=== PATIENT | female | born 1930 | race Caucasian/White ===

== ENCOUNTER 2019-08-22 02:27 | Inpatient (IN) ==
[2019-08-22 02:58] LABS: Basophils # (auto) 0.01 K/uL (0-0.2); Basophils % (auto) 0.1 %; Eosinophils # (auto) 0.04 K/uL (0-0.5); Eosinophils % (auto) 0.3 %; Hematocrit (blood only) 37.4 % (37-47); Hemoglobin 12.3 g/dL (12.0-16.0); Immature Granulocytes # (auto) 0.02 K/uL (0.00-0.02); Immature Granulocytes % (auto) 0.2 %; Lymphocytes # (auto) 0.94 K/uL (1.2-3.4); Lymphocytes % (auto) 7.2 %; Mean Corpuscular Hemoglobin 29.4 pg (25-34); Mean Corpuscular Hgb Conc 32.9 g/dL (32-36); Mean Corpuscular Volume 89.3 fL (80-100); Mean Platelet Volume 10.1 fL (7.4-10.4); Monocytes # (auto) 0.67 K/uL (0.11-0.59); Monocytes % (auto) 5.1 %; Neutrophils # (auto) 11.41 K/uL (1.4-6.5); Neutrophils % (auto) 87.1 %; Platelet Count 171 K/uL (130-400); RDW Coefficient of Variation 13.3 % (11.5-14.5); RDW Standard Deviation 44.3 fL (36.4-46.3); Red Blood Count 4.19 M/uL (4.2-5.4); White Blood Count 13.09 K/uL (4.8-10.8)
[2019-08-22 03:14] LABS: INR 1.3 (0.9-1.1); Prothrombin Time 13.2 Seconds (9.0-12.0)
[2019-08-22 03:18] LABS: Albumin Level 3.7 gm/dl (3.4-5.0); BUN Creatinine Ratio 14.5 (10-20); Bilirubin Direct 0.2 mg/dl (0-0.2); Calcium 9.3 mg/dl (8.5-10.1); Est GFR (Non-African American) 51.8; Magnesium 1.9 mg/dl (1.8-2.4); Potassium 3.2 mmol/L (3.5-5.1)
[2019-08-22 03:33] LABS: Bilirubin,Total 0.6 mg/dl (0.2-1); Total Protein 7.3 gm/dl (6.4-8.2); Troponin I 0.593 ng/ml (0-0.045)
[2019-08-22] MEDS ORDERED: ACETAMINOPHEN 500 MG TAB PO STA (03:41)
[2019-08-22] MEDS ORDERED: ASPIRIN 81 MG CHEW PO STA (03:47)
[2019-08-22] MEDS ORDERED: POTASSIUM CHLORIDE 20 MEQ TABCR PO STA (03:48)
[2019-08-22] MEDS ORDERED: POTASSIUM CHLORIDE 10 MEQ TABCR PO ONE (03:56)
[2019-08-22 04:13] LABS: Thyroid Stimulating Hormone 4.92 uIu/ml (0.300-4.500)
[2019-08-22 04:34] LABS: T4 Free Thyroxine 1.65 ng/dl (0.8-1.6)
--- NOTE | 2019-08-22 04:53 | History & Physical Report ---
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 Hypertension, elevated secondary to above chronic diastolic heart failure (EF 55 to 60%, TTE 2016), patient euvolemic to dry hx CAD sp stent hyperlipidemia on statin Rx hypothyroidism, euthyroid as of today's TSH history PE/DVT status post IVC filter placement Hyperglycemia rule out DM Medical telemetry Neurochecks Baby aspirin, continue home statin for secondary stroke prevention for now Stroke work-up as follows: MRI/MRA brain, carotid Dopplers, 2D echo Update lipid profile Neurology consult RE LUE weakness Permissive hypertension Check hemoglobin A1c PT OT eval DVT prophylaxis per Lovenox subcu DNR Patient's daughter requesting updates for providers. Ms. Lety Ordoñez, [phone]. Text document was generated using [employer] for [employer] voice recognition software. It may contain grammatical or spelling errors. Kindly contact undersigned for clarification of any documentation item in question. History of Present Illness Chief Complaint: Left arm weakness Primary Care Provider: Nell Sinha DO Patient has another [facility] EMR record. [facility] Rec: [id number] Acct ID: [id number] History obtained from patient, family, and records. Medical history significant for chronic diastolic heart failure (EF 55 to 60%, TTE 2016) CAD sp stent, A. 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 Recent confinement October 2015 for acute PE/DVT. Patient discharged on Eliquis. Recent ER visit 2 months ago for head trauma following a fall resulting in a scalp laceration. Patient not feeling well the last couple of days. Yesterday morning, she noted weakness in the left arm and hand. Achy generalized headache, nausea symptoms. Patient did not want to come to the hospital initially. Patient denies chest pain, S OB. Denies abdominal pain, dysuria symptoms Patient given aspirin by EMS prior to transfer to ER. 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 Allergies Allergy/AdvReac Type Severity Reaction Status Date / Time warfarin Allergy Unknown Verified 08/22/19 10:33 Thiazides AdvReac Unknown HYPERCALCEM Verified 08/22/19 04:24 IA Home Medications Home Medications Medication Instructions Recorded Confirmed Type albuterol sulfate 90 mcg/actuation 2 puffs INH Q6H PRN #8 gm 02/17/19 08/22/19 Rx aerosol inhaler cholecalciferol (vitamin D3) 25 1,000 units PO DAILY #30 cap 02/17/19 08/22/19 Rx mcg (1,000 unit) capsule docusate sodium 100 mg capsule 100 mg PO BID #60 cap 02/17/19 08/22/19 Rx furosemide 20 mg tablet 20 mg PO DAILY #90 tab 02/17/19 08/22/19 Rx lisinopril 5 mg tablet 5 mg PO DAILY #90 tab 02/17/19 08/22/19 Rx nitroglycerin 0.4 mg sublingual 0.4 mg SL Q5M PRN #25 tab 02/17/19 08/22/19 Rx tablet potassium chloride 8 mEq 8 meq PO DAILY #90 cap 02/17/19 08/22/19 Rx capsule,extended release salmeterol 50 mcg/dose blister 1 puffs INH Q12H #60 ea 02/17/19 08/22/19 Rx powder for inhalation sertraline 25 mg PO QPM 06/28/19 08/22/19 History amiodarone 200 mg PO QAM 08/22/19 08/22/19 History famotidine 20 mg PO QAM 08/22/19 08/22/19 History levothyroxine 75 mcg PO QAM 08/22/19 08/22/19 History loratadine 5 mg PO DAILY 08/22/19 08/22/19 History metoprolol succinate 25 mg PO QAM 08/22/19 08/22/19 History yfnurmxy-swi-fvcd-FA-lutein 1 tab PO QAM 08/22/19 08/22/19 History [Centrum Silver Women] pravastatin 20 mg PO QPM 08/22/19 08/22/19 History theophylline 300 mg PO DAILY 08/22/19 08/22/19 History vit C,R-Ea-kzxrj-lutein-zeaxan 1 tab PO BID 08/22/19 08/22/19 History [PreserVision AREDS-2] Past Med/Surg History Medical History Asthma, moderate persistent (Chronic) CAD (coronary artery disease) (Chronic) "s/p LAD stent placed in 2003" CKD (chronic kidney disease) stage 3, GFR 30-59 ml/min (Chronic) Diastolic heart failure (Chronic) "echo 07/06/14-LVEF 50% with grade 1 diastolic dysfunction and mild L ventricular hypertrophy, mod aortic regurg and mod mitral regurg" Dyslipidemia (Chronic) Femur fracture, left (Acute) History of CVA (cerebrovascular accident) (Chronic) "during procedure in 2012 " HTN (hypertension) (Chronic) Hypothyroidism (Chronic) Paroxysmal atrial fibrillation (Chronic) Vitamin D deficiency (Chronic) Surgical History H/O cataract removal with insertion of prosthetic lens (Resolved) "bilateral" History of hysterectomy (Resolved) Hx of total knee arthroplasty (Resolved) "bilateral 1996 and 1997" Status post revision of total replacement of left knee (Resolved) "2010" Stented coronary artery (Resolved) "LAD 2003" Social History Preferred Language: Romansh Communication Ability: Impaired 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 Beliefs That Will Affect Care: None marital status: / Current Living Situation: Alone current occupational status: retired Feels Safe at Home: Yes Safety Concerns: Feels Safe At This Time Smoking Status: Never smoker Hx Alcohol Use: No Hx Substance Use: No Review of Systems Review of Systems: As per HPI, all 10 systems reviewed, all other ROS negative Physical Exam Physical Exam: GENERAL: Comfortable, pleasant, slightly hard of hearing, no respiratory distress SKIN: Normal color, warm HEENT: Bespectacled, pink palpebral conjunctivae, no ptosis, dry buccal mucosa, edentulous NECK : Supple, no tenderness CHEST : CTA, no tenderness HEART : RRR, systolic murmur ABDOMEN: Some distention, nontender EXTREMITIES : No LE swelling/tenderness, no other conspicuous deformities noted NEUROLOGIC : Coherent, no facial asymmetry, slightly hard of hearing, pronator drift left, Results & Data Vital Signs (Past 12 Hours) Vital Signs Temp Pulse Resp BP Pulse Ox 08/22/19 03:30 73 21 166/83 H 95 08/22/19 03:00 78 13 162/80 H 97 08/22/19 02:54 76 17 168/79 H 96 08/22/19 02:33 36.7 C 88 16 144/80 H 97 Laboratory Results Laboratory Results WBC 13.09 K/uL (4.8-10.8) H 08/22/19 02:45 RBC 4.19 M/uL (4.2-5.4) L 08/22/19 02:45 Hgb 12.3 g/dL (12.0-16.0) 08/22/19 02:45 Hct 37.4 % (37-47) 08/22/19 02:45 MCV 89.3 fL (80-100) 08/22/19 02:45 MCH 29.4 pg (25-34) 08/22/19 02:45 MCHC 32.9 g/dL (32-36) 08/22/19 02:45 RDW Std Deviation 44.3 fL (36.4-46.3) 08/22/19 02:45 RDW Coeff of [place] 13.3 % (11.5-14.5) 08/22/19 02:45 Plt Count 171 K/uL (130-400) 08/22/19 02:45 MPV 10.1 fL (7.4-10.4) 08/22/19 02:45 Immature Gran % (Auto) 0.2 % 08/22/19 02:45 Neut % (Auto) 87.1 % 08/22/19 02:45 Lymph % (Auto) 7.2 % 08/22/19 02:45 [place] % (Auto) 5.1 % 08/22/19 02:45 Eos % (Auto) 0.3 % 08/22/19 02:45 Baso % (Auto) 0.1 % 08/22/19 02:45 Immature Gran # (Auto) 0.02 K/uL (0.00-0.02) 08/22/19 02:45 Neut # (Auto) 11.41 K/uL (1.4-6.5) H 08/22/19 02:45 Lymph # (Auto) 0.94 K/uL (1.2-3.4) L 08/22/19 02:45 [place] # (Auto) 0.67 K/uL (0.11-0.59) H 08/22/19 02:45 Eos # (Auto) 0.04 K/uL (0-0.5) 08/22/19 02:45 Baso # (Auto) 0.01 K/uL (0-0.2) 08/22/19 02:45 PT 13.2 Seconds (9.0-12.0) H 08/22/19 02:45 INR 1.3 (0.9-1.1) H 08/22/19 02:45 Sodium 141 mmol/L (136-145) 08/22/19 02:45 Potassium 3.2 mmol/L (3.5-5.1) L 08/22/19 02:45 Chloride 108 mmol/L (98-107) H 08/22/19 02:45 Carbon Dioxide 23 mmol/L (21-32) 08/22/19 02:45 Anion Gap 10.0 (3-11) 08/22/19 02:45 BUN 14 mg/dl (7-18) 08/22/19 02:45 Creatinine 0.97 mg/dl (0.6-1.2) 08/22/19 02:45 Est Cr Clr Drug Dosing 33.0 ml/min 08/22/19 02:45 Est GFR ( Amer) 60.0 08/22/19 02:45 Est GFR (Non-Af Amer) 51.8 08/22/19 02:45 BUN/Creatinine Ratio 14.5 (10-20) 08/22/19 02:45 Glucose 154 mg/dl (70-99) H 08/22/19 02:45 Calcium 9.3 mg/dl (8.5-10.1) 08/22/19 02:45 Magnesium 1.9 mg/dl (1.8-2.4) 08/22/19 02:45 Total Bilirubin 0.6 mg/dl (0.2-1) 08/22/19 02:45 Direct Bilirubin 0.2 mg/dl (0-0.2) 08/22/19 02:45 AST 37 U/L (15-37) 08/22/19 02:45 ALT 44 U/L (12-78) 08/22/19 02:45 Alkaline Phosphatase 249 U/L (45-117) H 08/22/19 02:45 Troponin I 0.593 ng/ml (0-0.045) H* 08/22/19 02:45 Total Protein 7.3 gm/dl (6.4-8.2) 08/22/19 02:45 Albumin 3.7 gm/dl (3.4-5.0) 08/22/19 02:45 TSH 4.920 uIu/ml (0.300-4.500) H 08/22/19 02:45 Free T4 1.65 ng/dl (0.8-1.6) H 08/22/19 02:[address] head initial read: Acute intracranial hemorrhage, mass-effect or edema. No evidence of acute cortical stroke. Encephalomalacia. Old infarct left frontal and left frontoparietal region. Diffuse parenchymal atrophy. CXR as per my interpretation cardiomegaly EKG as per my interpretation: Rate 85, NSR, LAD, LAFB, LVH, no ischemia
[2019-08-22] MEDS ORDERED: METOPROLOL SUCC 50MG EXT REL TAB PO STA (05:04)
[2019-08-22 05:14] LABS: Appearance Urine Cloudy (Clear); Bacteria Urine Automated 4+ (Negative); Bilirubin Urine Negative (Negative); Blood Urine Negative (Negative); Color Urine Yellow; Epithelial Cell Urine Auto 0-5 /lpf (0-5); Glucose Urine UA Negative (Negative); Ketones Urine 1+ (Negative); Leukocyte Esterase Urine 1+ (Negative); Nitrite Urine Negative (Negative); Protein Urine 1+ (Negative); RBC Urine Automated 0-4 /hpf (0-4); Urobilinogen Urine Negative (Negative); WBC Urine Automated >30 /hpf (0-5)
[2019-08-22] MEDS ORDERED: cefTRIAXone SODIUM 1,000 MG/50 ML BAG IV STA (05:24)
--- NOTE | 2019-08-22 05:42 | Emergency Department Note ---
Entered by Jennifer Hall acting as a scribe for Frankie Judge MD ED Provider Note Name: MYKE SANZ Age: 89 Arrives Via: Family Vehicle Informant: Patient CC: Weakness HPI: 89F arrives for evaluation of weakness for the past several days. The patient reports that that the patient was experiencing left arm weakness yesterday morning. She states that she could not lift it. She notes that she currently has a headache and mild nausea. No fevers, vomiting, passing out, breathing difficulty, chest pain, shortness of breath, abdominal pain, nor other symptoms. The patient notes that she has a history of a stroke. She denies being on any blood thinners. She has had a few falls over the last few weeks though no known head injury. She is on no blood thinners nor aspirin. ROS: See above HPI for pertinent positives & negatives. A total of 10 systems reviewed and were otherwise negative. Past Medical History:See Below Past Surgical History:See Below Family History:See Below Social History:See Below Home Medications:See Below Allergies:Coumadin, Thiazides Vitals:Blood Pressure 152/70, Pulse 65, Resp 15, T 36.7C, O2 97% on RA Physical Exam: GENERAL: Patient is anxious appearing appearing and in mild distress. EYES: No scleral icterus, unremarkable pupils. ENT: Mucous membranes moist, no nasal congestion. NECK: No masses appreciated, nomeningismus, trachea is midline. RESPIRATORY: No dyspnea. Clear to auscultation and equal bilaterally. No wheeze, no rhonchi. CARDIOVASCULAR: Regular rate and rhythm.No murmurs, rubs, gallops appreciated. GASTROINTESTINAL: Abdomen soft, non-tender, no peritonitis.Bowel sounds positive.No masses appreciated. BACK: No midline tenderness, no CVA tenderness EXTREMITIES: Normal motion all extremities, no cyanosis, no edema. Ataxia of left hand and arm, good strength of hand, decreased strength of upper arm. Contraction of right hand with weakness. NEUROLOGIC: Alert and oriented, no acute motor or sensory deficits, no focal weakness, cranial nerves grossly intact. Slight left sided facial droop overcome by voluntary muscles. SKIN: No rash, no jaundice, no diaphoresis. GCS 15 ED Course: Prior Medical Record, Triage/Nursing Notes, Medications, Allergies reviewed by Me Vital Signs: reviewed and remarkable for no significant abnormalities Labs:Reviewed and remarkable for +UTI Interventions: saline lock, rocephin 1 gm IV, asa 324mg PO, tylenol PO Imaging:X ray results are stated below per my interpretation: Chest: 1 view: No infiltrate, no effusion, normal cardiac border. [facility] Radiologist interpretation reviewed by me: CT head no acute findings EKG:Per My Interpretation: Indication Stroke: NSR 85 bpm, qtc 459 with intraventricular block and similar to EKG 11/22/15. No Ectopy. No Ischemia. Cardiac Monitoring: An Order was placed for continuous cardiac monitoring. The monitor shows a rate of 60 with a normal sinus rhythm. Reassessments/Times: Multiple reevaluations, stable, hospitalist in to evaluate further. Blood pressure:Elevated - Referred to Hospitalist Disposition:Hospitalization Differentials: Differential: Sepsis, Infectious (UTI/Pneumonia/Meningitis/etc), Metabolic/Electrolyte Abnormality, Cardiac, Dehydration, Anemia, Hepatic, Endocrine, Toxicologic, Neurologic, amongst other pathologies entertained. Medical Decision Makin yr old female with history of cad, ckd, cva, paf, pewho does not appear to be on any anticoagulation due to previous GI bleed. She arrives with 20 hours of left arm ataxia and some weakness of left face on exam. She is primarily left handed after stroke leaving right side weak a few years ago, though has been living at home doing well. She does seem a bit tired but GCS 15. CT head negative for acute findings. Labs OK though Trop is bumped. Unclear if this is chronic or not and will need trended out. EKG without ischemia and patient without chest pain thus would hold on heparin at this time. UA with UTI thus rocephin given. patient will come in to hospitalist for further management. Impression: Ataxia of left upper extremity Elevated Troponin Acute UTI The scribe's documentation has been prepared under my direction and personally reviewed by me in its entirety. I confirm that the note above accurately reflects all work, treatment, procedures, and medical decision making performed by me. Frankie Judge MD Impression & Plan Ataxia of left upper extremity, Elevated troponin, Acute UTI (urinary tract infection) Past Med/Surg History Medical History Asthma, moderate persistent (Chronic) CAD (coronary artery disease) (Chronic) "s/p LAD stent placed in 2003" CKD (chronic kidney disease) stage 3, GFR 30-59 ml/min (Chronic) Diastolic heart failure (Chronic) "echo 07/06/14-LVEF 50% with grade 1 diastolic dysfunction and mild L ventricular hypertrophy, mod aortic regurg and mod mitral regurg" Dyslipidemia (Chronic) Femur fracture, left (Acute) History of CVA (cerebrovascular accident) (Chronic) "during procedure in 2012 " HTN (hypertension) (Chronic) Hypothyroidism (Chronic) Paroxysmal atrial fibrillation (Chronic) Vitamin D deficiency (Chronic) Surgical History H/O cataract removal with insertion of prosthetic lens (Resolved) "bilateral" History of hysterectomy (Resolved) Hx of total knee arthroplasty (Resolved) "bilateral 1996 and 1997" Status post revision of total replacement of left knee (Resolved) "2010" Stented coronary artery (Resolved) "LAD 2003" Social History Preferred Language: Sinhala marital status: / Current Living Situation: Alone current occupational status: retired Feels Safe at Home: Yes Smoking Status: Never smoker Results & Data Vital Signs Vital Signs - 24 hr 08/22/19 02:33 08/22/19 02:54 08/22/19 03:00 Temperature 36.7 C Temperature Source Oral Pulse Rate 88 76 78 Pulse Rate from SpO2 Sensor 77 78 Respiratory Rate 16 17 13 Respiratory Effort / Characteristics Non-Labored Spontaneous Respiratory Depth Normal Respiratory Pattern Regular Blood Pressure 144/80 H 168/79 H 162/80 H Blood Pressure Mean 101 124 111 Blood Pressure Position Sitting Pulse Oximetry 97 96 97 Oxygen Delivery Method Room Air Sepsis Recent Fever Within 48 Hours No Sepsis Action Taken by Nursing No Action Required 08/22/19 03:30 08/22/19 04:00 08/22/19 04:30 Temperature Temperature Source Pulse Rate 73 79 72 Pulse Rate from SpO2 Sensor 80 72 Respiratory Rate 21 17 18 Respiratory Effort / Characteristics Respiratory Depth Respiratory Pattern Blood Pressure 166/83 H 178/102 H 165/79 H Blood Pressure Mean 89 125 101 Blood Pressure Position Pulse Oximetry 95 97 92 Oxygen Delivery Method Room Air Room Air Room Air Sepsis Recent Fever Within 48 Hours Sepsis Action Taken by Nursing 08/22/19 05:01 08/22/19 05:30 Temperature Temperature Source Pulse Rate 71 65 Pulse Rate from SpO2 Sensor 71 65 Respiratory Rate 17 15 Respiratory Effort / Characteristics Respiratory Depth Respiratory Pattern Blood Pressure 165/79 H 152/70 H Blood Pressure Mean 97 101 Blood Pressure Position Pulse Oximetry 97 97 Oxygen Delivery Method Room Air Room Air Sepsis Recent Fever Within 48 Hours Sepsis Action Taken by Long Term Medications Current Medication List: was personally reviewed by me Laboratory Data Attestation: I reviewed the patient's lab results. Result diagrams: 08/22/19 02:45 08/22/19 02:45 Lab Results 08/22/19 08/22/19 08/22/19 Range/Units 02:45 02:45 02:45 WBC 13.09 H (4.8-10.8) K/uL RBC 4.19 L (4.2-5.4) M/uL Hgb 12.3 (12.0-16.0) g/dL Hct 37.4 (37-47) % MCV 89.3 (80-100) fL MCH 29.4 (25-34) pg MCHC 32.9 (32-36) g/dL RDW Std Deviation 44.3 (36.4-46.3) fL RDW Coeff of [place] 13.3 (11.5-14.5) % Plt Count 171 (130-400) K/uL MPV 10.1 (7.4-10.4) fL Immature Gran % (Auto) 0.2 % Neut % (Auto) 87.1 % Lymph % (Auto) 7.2 % [place] % (Auto) 5.1 % Eos % (Auto) 0.3 % Baso % (Auto) 0.1 % Immature Gran # (Auto) 0.02 (0.00-0.02) K/uL Neut # (Auto) 11.41 H (1.4-6.5) K/uL Lymph # (Auto) 0.94 L (1.2-3.4) K/uL [place] # (Auto) 0.67 H (0.11-0.59) K/uL Eos # (Auto) 0.04 (0-0.5) K/uL Baso # (Auto) 0.01 (0-0.2) K/uL PT 13.2 H (9.0-12.0) Seconds INR 1.3 H (0.9-1.1) Sodium 141 (136-145) mmol/L Potassium 3.2 L (3.5-5.1) mmol/L Chloride 108 H (98-107) mmol/L Carbon Dioxide 23 (21-32) mmol/L Anion Gap 10.0 (3-11) BUN 14 (7-18) mg/dl Creatinine 0.97 (0.6-1.2) mg/dl Est Cr Clr Drug Dosing 33.0 ml/min Est GFR ( Amer) 60.0 Est GFR (Non-Af Amer) 51.8 BUN/Creatinine Ratio 14.5 (10-20) Glucose 154 H (70-99) mg/dl Calcium 9.3 (8.5-10.1) mg/dl Magnesium 1.9 (1.8-2.4) mg/dl Total Bilirubin 0.6 (0.2-1) mg/dl Direct Bilirubin 0.2 (0-0.2) mg/dl AST 37 (15-37) U/L ALT 44 (12-78) U/L Alkaline Phosphatase 249 H (45-117) U/L Troponin I 0.593 H* (0-0.045) ng/ml Total Protein 7.3 (6.4-8.2) gm/dl Albumin 3.7 (3.4-5.0) gm/dl TSH 4.920 H (0.300-4.500) uIu/ml Free T4 1.65 H (0.8-1.6) ng/dl Urine Color Urine Appearance (Clear) Urine pH (4.5-7.5) Ur Specific [place] (1.000-1.030) Urine Protein (Negative) Urine Glucose (UA) (Negative) Urine Ketones (Negative) Urine Blood (Negative) Urine Nitrite (Negative) Urine Bilirubin (Negative) Urine Urobilinogen (Negative) Ur Leukocyte Esterase (Negative) Urine WBC (Auto) (0-5) /hpf Urine RBC (Auto) (0-4) /hpf U Hyaline Cast (Auto) (0-5) /lpf U Epithel Cells (Auto) (0-5) /lpf Urine Bacteria (Auto) (Negative) 08/22/19 Range/Units 04:57 WBC (4.8-10.8) K/uL RBC (4.2-5.4) M/uL Hgb (12.0-16.0) g/dL Hct (37-47) % MCV (80-100) fL MCH (25-34) pg MCHC (32-36) g/dL RDW Std Deviation (36.4-46.3) fL RDW Coeff of [place] (11.5-14.5) % Plt Count (130-400) K/uL MPV (7.4-10.4) fL Immature Gran % (Auto) % Neut % (Auto) % Lymph % (Auto) % [place] % (Auto) % Eos % (Auto) % Baso % (Auto) % Immature Gran # (Auto) (0.00-0.02) K/uL Neut # (Auto) (1.4-6.5) K/uL Lymph # (Auto) (1.2-3.4) K/uL [place] # (Auto) (0.11-0.59) K/uL Eos # (Auto) (0-0.5) K/uL Baso # (Auto) (0-0.2) K/uL PT (9.0-12.0) Seconds INR (0.9-1.1) Sodium (136-145) mmol/L Potassium (3.5-5.1) mmol/L Chloride (98-107) mmol/L Carbon Dioxide (21-32) mmol/L Anion Gap (3-11) BUN (7-18) mg/dl Creatinine (0.6-1.2) mg/dl Est Cr Clr Drug Dosing ml/min Est GFR ( Amer) Est GFR (Non-Af Amer) BUN/Creatinine Ratio (10-20) Glucose (70-99) mg/dl Calcium (8.5-10.1) mg/dl Magnesium (1.8-2.4) mg/dl Total Bilirubin (0.2-1) mg/dl Direct Bilirubin (0-0.2) mg/dl AST (15-37) U/L ALT (12-78) U/L Alkaline Phosphatase (45-117) U/L Troponin I (0-0.045) ng/ml Total Protein (6.4-8.2) gm/dl Albumin (3.4-5.0) gm/dl TSH (0.300-4.500) uIu/ml Free T4 (0.8-1.6) ng/dl Urine Color Yellow Urine Appearance Cloudy A (Clear) Urine pH 6.0 (4.5-7.5) Ur Specific [place] 1.020 (1.000-1.030) Urine Protein 1+ H (Negative) Urine Glucose (UA) Negative (Negative) Urine Ketones 1+ H (Negative) Urine Blood Negative (Negative) Urine Nitrite Negative (Negative) Urine Bilirubin Negative (Negative) Urine Urobilinogen Negative (Negative) Ur Leukocyte Esterase 1+ H (Negative) Urine WBC (Auto) >30 H (0-5) /hpf Urine RBC (Auto) 0-4 (0-4) /hpf U Hyaline Cast (Auto) 1-5 (0-5) /lpf U Epithel Cells (Auto) 0-5 (0-5) /lpf Urine Bacteria (Auto) 4+ H (Negative) Administered Medications Discontinued Medications Acetaminophen (Tylenol) 1,000 mg PO NOW STA Stop: 08/22/19 03:42 Last Admin: 08/22/19 03:57 Dose: 1,000 mg Documented by: [id number] Aspirin (Aspirin Chew) 324 mg PO NOW STA Stop: 08/22/19 03:48 Last Admin: 08/22/19 03:58 Dose: 324 mg Documented by: [id number] Potassium Chloride (Klor-Con M10) Confirm Administered Dose 40 meq PO .STK-MED ONE Stop: 08/22/19 03:57 Last Admin: 08/22/19 03:57 Dose: 40 meq Documented by: [id number] Blood Pressure Blood Pressure Findings: Elevated blood pressure Discharge Plan Visit Data Chief Complaint: Neuro Symptoms/Deficit Stated Complaint: GARCIA, NAUSEA, CONFUSION, LEFT ARM WEAKNES ED Provider: Frankie Judge Discharge Problem: Ataxia of left upper extremity, Elevated troponin, Acute UTI (urinary tract infection) Discharge Instructions Interventions: ED Discharge Assessment Last Done: 08/22/19 05:35 Forms Stand Alone Forms: My [employer] Prescriptions Prescriptions: No Action nitroglycerin 0.4 mg tablet, sublingual 0.4 mg SL Q5M PRN (Reason: chest pain) Qty: 25 RF: 0 albuterol sulfate [ProAir HFA] 90 mcg/actuation HFA aerosol inhaler 2 puffs INH Q6H PRN (Reason: shortness of breath or wheezing) Qty: 8 RF: 0 Serevent Diskus 50 mcg/dose blister with device 1 puffs INH Q12H Qty: 60 RF: 3 furosemide 20 mg tablet 20 mg PO DAILY Qty: 90 RF: 3 potassium chloride 8 mEq capsule, extended release 8 meq PO DAILY Qty: 90 RF: 3 docusate sodium [Colace] 100 mg capsule 100 mg PO BID Qty: 60 RF: 0 cholecalciferol (vitamin D3) 1,000 unit capsule 1,000 units PO DAILY Qty: 30 RF: 0 lisinopril 5 mg tablet 5 mg PO DAILY Qty: 90 RF: 3 sertraline 25 mg Tablet 25 mg PO QPM RF: 0 amiodarone 200 mg tablet 200 mg PO QAM RF: 0 levothyroxine 75 mcg capsule 75 mcg PO QAM RF: 0 loratadine 5 mg tablet,disintegrating 5 mg PO DAILY RF: 0 PreserVision AREDS-2 [id number] kw-gsqz-[id number]-mg Capsule 1 tab PO BID RF: 0 Centrum Silver Women 8 mg iron-400 mcg-300 mcg tablet 1 tab PO QAM RF: 0 famotidine 20 mg Tablet 20 mg PO QAM RF: 0 metoprolol succinate 25 mg Tablet Extended Release 24 Hr 25 mg PO QAM RF: 0 theophylline 300 mg Capsule,Extended Release 24hr 300 mg PO DAILY RF: 0 pravastatin 20 mg tablet 20 mg PO QPM RF: 0 Referrals Referrals: Nell Sinha DO [Primary Care Provider] - The scribe's documentation has been prepared under my direction and personally reviewed by me in its entirety. I confirm that the note above accurately reflects all work, treatment, procedures, and medical decision making performed by me.
[2019-08-22 06:14] LABS: Estimated Average Glucose 126 mg/dl
[2019-08-22] MEDS ORDERED: PROMETHAZINE HCL 12.5 MG in SODIUM CHLORIDE 0.9% 50 ML IV PRN (06:15)
[2019-08-22] MEDS ORDERED: ACETAMINOPHEN 325 MG TAB PO PRN (06:15)
[2019-08-22] MEDS ORDERED: NITROGLYCERIN SL 0.4 MG/TAB TAB SL PRN (06:15)
[2019-08-22] MEDS ORDERED: TRAMADOL HCL 50 MG TABLET PO PRN (06:15)
[2019-08-22] MEDS ORDERED: PHARMACIST DISCHARGE MED REC CONSULT PRN (06:15)
--- NOTE | 2019-08-22 06:42 | XRay Report ---
XR chest 1V portable HISTORY: 89 years-old Female stroke findings acute strokelike symptoms COMPARISON: CTA of the chest 11/20/2015, chest radiograph 09/08/2015 TECHNIQUE: Portable AP view of the chest. FINDINGS: Cardiac silhouette is mildly enlarged. Calcified plaque of the thoracic aortic arch. The lungs are hy perinflated. No pneumothorax, pleural effusion, airspace consolidation or overt pulmonary edema. Dege nerative changes of the shoulders and spine. IMPRESSION: No acute process. ACT 112: Negative or not required by law. The above report was generated using voice recognition software. It may contain grammatical, syntax o r spelling errors. Electronically signed by: Pritesh Ventura M.D. 08/22/2019 6:41 AM
--- NOTE | 2019-08-22 06:55 | CT Scan Report ---
CT head/brain wo con CLINICAL HISTORY: 89 years-old Female with left arm weakness. Acute strokelike symptoms with left-si ded weakness TECHNIQUE: Multiple axial CT images of the head were obtained without contrast. A dose lowering tech nique was utilized adhering to the principles of ALARA. CT DOSE: 614.27 mGy.cm COMPARISON: Head CT 06/28/2019, 10/01/2012. FINDINGS: No acute intracranial hemorrhage, midline shift, intracranial mass, hydrocephalus, territorial ischem ia or abnormal extra-axial collection. Age-related involutional changes with ex vacuo ventriculomegal y. Patchy white matter hypodensities suggest chronic microvascular ischemic disease. Cerebral vascula r calcifications. Encephalomalacia from remote infarct in the left frontal lobe. 5 mm hypodense focus of the left thalamus is either new or has progressed from the 06/28/2019 study and was not present on the 2012 exam. No acute calvarial fracture. Benign hyperostosis frontalis interna. Trace right mastoid effusion. Le ft mastoid air cells are clear. Paranasal sinuses are also generally clear. The soft tissues are unre markable. Prior bilateral lens replacement. IMPRESSION: 1. No acute intracranial hemorrhage, midline shift or acute territorial infarct. 2. Age-related involutional changes with chronic microvascular ischemic. 3. Encephalomalacia from remote infarct involves left frontal lobe. 4. 5 mm hypodensity of the left thalamus is suggestive of age-indeterminate lacunar infarct. ACT 112: Negative or not required by law. The above report was generated using voice recognition software. It may contain grammatical, syntax o r spelling errors. Electronically signed by: Pritesh Ventura M.D. 08/22/2019 6:53 AM
[2019-08-22] MEDS ORDERED: POTASSIUM CHLORIDE 40 MEQ in SODIUM CHLORIDE 0.45 % 1,000 ML IV ONE (07:00)
[2019-08-22] MEDS: LEVOTHYROXINE SODIUM 75 MCG TABLET PO SCH (07:21)
--- NOTE | 2019-08-22 07:34 | Hospitalist Progress Note ---
Date of Service August 22, 2019 Assessment & Plan (1) Ataxia of left upper extremity: (2) Elevated troponin: (3) Acute UTI (urinary tract infection): (4) CAD (coronary artery disease): (5) CKD (chronic kidney disease) stage 3, GFR 30-59 ml/min: (6) Diastolic heart failure: (7) Dyslipidemia: (8) History of CVA (cerebrovascular accident): (9) HTN (hypertension): (10) Hypothyroidism: MRI pending, Continue Rocephin, PT/OT, discussed case c Dtr at bedside, Labs checked ROS-No Headache, No Visual Changes, No Nausea, No Vomiting, No Fever, No Chills, No Neck Pain or Stiffness, No Chest Pain, No Palpitations, No SOB, No VALENZUELA, No Cough, No Sputum, No Wheezing, No Abdominal Pain, No Diarrhea, No Hematemesis, No Hemoptysis, No Unexpected Weight Loss, No Flank pain, No Melena, No Hematochezia, No Frequency, No Urgency, No Burning, No Hematuria, No Rashes, No Diaphoresis. Appetite is Normal Physical Exam Gen-AAO x 3, NAD, Afebrile Head-NCAT, EOMI, PERRLA, Anicteric Sclera, No Posterior Pharyngeal Erythema Neck-Supple, No JVD, No Thyromegaly, No Masses, No LAD, No Bruits Lungs-Clear to Auscultation Bilaterally, No Rales, No Rhonchi, No Wheezing, No Crepitus Chest-No S4, +S1, +S2, No S3, No Murmurs, No Rubs, No Gallops, No Ectopy Abdomen-Soft, Bowel Sounds Present, Non Tender, Non Distended, No Hepatomegaly, No Splenomegaly, No Palpable Masses, No Rebound, No Rigidity, No Guarding Musculoskeletal-Full Range of Motion Bilaterally, No CVAT Extremities-No Cyanosis, No Clubbing, No Edema Nuero-Cranial Nerves II-XII grossly intact, Motor WNL, DTRs WNL, Strength WNL, Non Focal Psych-Normal Mood Admission and Anticipated Discharge Date Admission Date: August 22, 2019 Results & Data ([facility]) Vital Signs (Past 12 Hours) Vital Signs Temp Pulse Pulse Resp BP BP Pulse Ox 08/22/19 07:17 63 08/22/19 06:46 65 08/22/19 06:03 36.8 C 76 16 162/72 H 97 08/22/19 05:30 65 15 152/70 H 97 08/22/19 05:01 71 17 165/79 H 97 08/22/19 04:30 72 18 165/79 H 92 08/22/19 04:00 79 17 178/102 H 97 08/22/19 03:30 73 21 166/83 H 95 08/22/19 03:00 78 13 162/80 H 97 08/22/19 02:54 76 17 168/79 H 96 08/22/19 02:33 36.7 C 88 16 144/80 H 97
--- NOTE | 2019-08-22 08:25 | Magnetic Resonance Report ---
MR brain wo con CLINICAL HISTORY: 89 years-old Female presenting with cva, left-sided weakness. TECHNIQUE: Multisequence, multiplanar MR imaging of the brain was performed without the use of intrav enous contrast. IV contrast: None. COMPARISON: Noncontrast CT head performed earlier the same day. FINDINGS: Localizer images: Unremarkable. Bone marrow signal intensity within the calvarium within normal limits. Normal midline sagittal structures. Proportional ventricular and sulcal prominence, likely age-relate d parenchymal volume loss. No mass effect or midline shift. Restricted diffusion in the paramedian ri ght occipital lobe (series 4 image 11; series 400 image 11). There are also numerous small foci of re stricted diffusion in the bilateral frontoparietal regions near the vertex. No restricted diffusion i s evident in the thalamus. Old infarcts in the left frontoparietal regions. Few limited cortical infa rcts in the right frontal region near the vertex. Old lacunar infarct in the left thalamus. Periventr icular and subcortical white matter T2/FLAIR hyperintensity, nonspecific but likely indicative of chr onic small vessel ischemic change. No extra-axial fluid collection. T2 skull base flow voids preserved. Bilateral [place] lenses are abse nt. IMPRESSION: 1. Multiple small acute infarcts the largest involving the right occipital lobe and several punctate acute infarcts in the bilateral frontoparietal regions near the vertex. This may suggest an embolic etiology. 2. Multiple old infarcts involving the left frontoparietal region to a greater degree than the right . Old lacunar infarct in the left thalamus. 3. Chronic small vessel ischemic change. The report will be called/faxed according to standard departmental protocol for a critical finding. ACT 112: Negative or not required by law. Electronically signed by: Miles Torrez M.D. 08/22/2019 8:24 AM
--- NOTE | 2019-08-22 08:26 | Magnetic Resonance Report ---
MR ANGIOGRAM OF THE BRAIN CLINICAL HISTORY: Stroke. COMPARISON STUDY: MRI of the brain performed concurrently on 08/22/2019. TECHNIQUE: 3-D [id number] MR angiography of the intracranial circulation is performed. 3-D tumble views are created and assessed. IV contrast was not administered for this examination. FINDINGS: The internal carotid arteries are widely patent bilaterally, as are the anterior and middle cerebral arteries. The vertebrobasilar system and posterior cerebral arteries are widely patent. The vertebral arteries are codominant. There is no aneurysm, high-grade stenosis, or focal vessel cutof f seen throughout the intracranial circulation. The brain parenchyma is normal as visualized. IMPRESSION: Unremarkable MR angiogram of the brain. ACT 112: Negative or not required by law. Electronically signed by: Chago Adler M.D. 08/22/2019 8:25 AM
[2019-08-22] MEDS: AMIODARONE 200 MG TAB PO SCH (08:42)
[2019-08-22] MEDS: LORATADINE 10 MG TAB PO SCH (08:43)
[2019-08-22] MEDS: CEROVITE ADV FORMULA TAB PO SCH (08:43)
[2019-08-22] MEDS: FAMOTIDINE 20 MG TAB PO SCH (08:43)
[2019-08-22] MEDS: DOCUSATE SODIUM 100 MG CAP PO SCH ×2 (08:44→21:07)
[2019-08-22] MEDS: ENOXAPARIN INJ 30 MG/0.3 ML SYR SQ SCH (08:45)
[2019-08-22] MEDS: OLODATEROL HCL 2.5MCG/ACTUATION 60 PUFFS/INHALER INH SCH (08:46)
[2019-08-22] MEDS: THEOPHYLLINE 300MG EXTENDED REL TAB PO SCH (08:47)
--- NOTE | 2019-08-22 11:02 | Electrocardiogram Report ---
Test Reason : Blood Pressure : / mmHG Vent. Rate : 085 BPM Atrial Rate : 085 BPM P-R Int : 154 ms QRS Dur : 118 ms QT Int : 386 ms P-R-T Axes : 077 -30 081 degrees QTc Int : 459 ms Normal sinus rhythm Left axis deviation Left ventricular hypertrophy with QRS widening and repolarization abnormality Abnormal ECG When compared with ECG of 22-NOV-2015 06:17, No significant change was found Confirmed by Franko Ansari ([id number]) on 08/22/2019 11:02:23 AM Referred By: REFERRED SELF Confirmed By:Franko Ansari
--- NOTE | 2019-08-22 11:09 | Ultrasound Report ---
ULTRASOUND OF THE CAROTID ARTERIES CLINICAL HISTORY: Stroke. COMPARISON STUDY: No priors. TECHNIQUE: Real-time, grayscale, and color Doppler sonography of the carotid arteries is performed. I mages are reviewed in the transverse and longitudinal planes. FINDINGS: Blood pressures were not assessed due to the presence of IV catheters. The carotid arteries are patent bilaterally and demonstrate antegrade flow. There is mild to moderate echogenic atherosclerotic plaque seen in the carotid bulbs. Normal doppler arterial waveforms are se en throughout. Velocity measurements are listed below. Common carotid peak systolic velocity (cm/sec): RIGHT: 43 LEFT: 52 ICA proximal peak systolic velocity (cm/sec): RIGHT: 40 LEFT: 44 ICA mid peak systolic velocity (cm/sec): RIGHT: 49 LEFT: 56 ICA distal peak systolic velocity (cm/sec): RIGHT: 59 LEFT: 66 ICA/CC peak systolic ratio: RIGHT: 1.4 LEFT: 1.3 Antegrade flow was shown in the vertebral arteries. The external carotid arteries are patent. IMPRESSION: 1. There is no sonographic evidence of hemodynamically significant stenosis in the right or left [place] arterial system. 2. Antegrade flow is shown in the vertebral arteries. ACT 112: Negative or not required by law. Electronically signed by: Chago Adler M.D. 08/22/2019 11:07 AM
--- NOTE | 2019-08-22 14:03 | Neurology Consultation ---
Date of Consultation August 22, 2019 Assessment & Plan (1) Acute CVA (cerebrovascular accident): 1. MRI - multiple small acute infarcts 2. carotid doppler no occlusion or significant stenosis 3. PT/OT speech for discharge needs 4. optimize HTN, HLD, DM LDL <70-- consider patients age 5. aspirin 81 mg possible option for stroke prevention however cardiology can decide if anything additional needs to be added 6. continue cardiac rhythem control 7. home situation may need assessment patient lives alone and at fall risk 8. TTE - if not already done -cardiology for recommendations (2) LUE weakness: (3) Ataxia of left upper extremity: (4) Elevated troponin: (5) Acute UTI (urinary tract infection): Supervising Physician Co-Signing Physician Notes I have seen and discussed above patient with Dr Eliseo Rodriguez, neurology I have seen and interviewed this woman.on examination reviewed her imaging studies and discussed her case with April Reyes, her daughter and by telephone with another daughter who has a better hold on the complex past medical history which includes paroxysmal atrial fibrillation due to valvular disease, and a prior gastrointestinal hemorrhage 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 with at least 2 episodes of bleeding requiring cauterization and with prohibition of any form of anticoagulation since that time She currently presents with recurrent cerebrovascular events involving both hemispheres with the most symptomatic event involving the right hemisphere producing a clumsy left hand which now is combined with her old right hemiparesis of mild degree and is associated with some slight dysarthria speech Imaging studies and certainly confirm the presence of multiple embolic events while this woman is currently in sinus rhythm the history suggests that the event may have occurred several days ago at a time when she may have been in and out of atrial fibrillation and this would be the most likely explanation for the embolic shower other than an aortic plaque I think the issues academic as I do not believe she could be on any type of anticoagulation unless cleared by gastroenterology who has seen her in the past and by cardiology who is dealt with this issue before Our prior notation suggests the potential using aspirin but again this may be a direct GI mucosal irritant and perhaps if we feel forced use any form of anticoagulation then Plavix indirect GI irritation might be a better choice. Frankly the literature does not indicate that any form of antiplatelet treatment has a role in stroke prevention and atrial fibrillation according to more recent studies Neurology is going to sign off the case at this point with suggestions that perhaps gastroenterology review her chart and make a decision about the safety of any form of anticoagulation in view of her history of AVMs and that cardiology be reconsulted as well but some of this could be done on an outpatient basis and right now EKG and exam show her to be in sinus rhythm She may need rehabilitation services and is possible a stay [facility] will be required and frankly I am not sure this woman is going to be safe living at home now with by hemispheral strokes and a history of frequent falls prior to this anyway Eliseo Rodriguez MD History of Present Illness Reason for Consultation: LUE weakness Requesting Physician: Landen Salgado DO Attending Physician: Landen Salgado DO History of Present Illness Hannah is an 89 year old female with PMH- CVA during a cardiac procedure, CAD, CKD III, HLD, afib not on anticoagulation, fall risk who presented with weakness for several days. She was experiencing left arm weakness and could not lift it. She also had a headache and mild nausea. She has a history of a stroke that effected her right arm and hand. she is not on blood thinners or aspirin because of her GI bleed previously with cauterization. She did have a femur fracture and was on Eliquis for a while according to her daughter. She had a IVC filter placed also and she was seen in the ED 11/2015 for a PE. She continued on Eliquis for 6 months with no issues of GI bleed. According to her daughter she did have a head trauma with a bleed at one point but not in [facility] system. She lives alone her family lives near by but during the day they all work. She sees [facility] cardiology for her a fib issues. denies CP, SOB, abdominal pain, vision changes, new bowel or bladder issues, N, V. +LUE weakness Allergies Allergy/AdvReac Type Severity Reaction Status Date / Time warfarin Allergy Unknown Verified 08/22/19 10:33 Thiazides AdvReac Unknown HYPERCALCEM Verified 08/22/19 04:24 IA Home Medications Home Medications Medication Instructions Recorded Confirmed Type albuterol sulfate 90 mcg/actuation 2 puffs INH Q6H PRN #8 gm 02/17/19 08/22/19 Rx aerosol inhaler cholecalciferol (vitamin D3) 25 1,000 units PO DAILY #30 cap 02/17/19 08/22/19 Rx mcg (1,000 unit) capsule docusate sodium 100 mg capsule 100 mg PO BID #60 cap 02/17/19 08/22/19 Rx furosemide 20 mg tablet 20 mg PO DAILY #90 tab 02/17/19 08/22/19 Rx lisinopril 5 mg tablet 5 mg PO DAILY #90 tab 02/17/19 08/22/19 Rx nitroglycerin 0.4 mg sublingual 0.4 mg SL Q5M PRN #25 tab 02/17/19 08/22/19 Rx tablet potassium chloride 8 mEq 8 meq PO DAILY #90 cap 02/17/19 08/22/19 Rx capsule,extended release salmeterol 50 mcg/dose blister 1 puffs INH Q12H #60 ea 02/17/19 08/22/19 Rx powder for inhalation sertraline 25 mg PO QPM 06/28/19 08/22/19 History amiodarone 200 mg PO QAM 08/22/19 08/22/19 History famotidine 20 mg PO QAM 08/22/19 08/22/19 History levothyroxine 75 mcg PO QAM 08/22/19 08/22/19 History loratadine 5 mg PO DAILY 08/22/19 08/22/19 History metoprolol succinate 25 mg PO QAM 08/22/19 08/22/19 History nwwptbmw-siv-dywq-FA-lutein 1 tab PO QAM 08/22/19 08/22/19 History [Centrum Silver Women] pravastatin 20 mg PO QPM 08/22/19 08/22/19 History theophylline 300 mg PO DAILY 08/22/19 08/22/19 History vit C,H-Zr-yjwsu-lutein-zeaxan 1 tab PO BID 08/22/19 08/22/19 History [PreserVision AREDS-2] Patient History Medical History Asthma, moderate persistent (Chronic) CAD (coronary artery disease) (Chronic) "s/p LAD stent placed in 2003" CKD (chronic kidney disease) stage 3, GFR 30-59 ml/min (Chronic) Diastolic heart failure (Chronic) "echo 07/06/14-LVEF 50% with grade 1 diastolic dysfunction and mild L ventricular hypertrophy, mod aortic regurg and mod mitral regurg" Dyslipidemia (Chronic) Femur fracture, left (Acute) History of CVA (cerebrovascular accident) (Chronic) "during procedure in 2012 " HTN (hypertension) (Chronic) Hypothyroidism (Chronic) Paroxysmal atrial fibrillation (Chronic) Vitamin D deficiency (Chronic) Surgical History H/O cataract removal with insertion of prosthetic lens (Resolved) "bilateral" History of hysterectomy (Resolved) Hx of total knee arthroplasty (Resolved) "bilateral 1996 and 1997" Status post revision of total replacement of left knee (Resolved) "2010" Stented coronary artery (Resolved) "LAD 2003" Social History Preferred Language: [place]ian Communication Ability: Effective 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: No Beliefs That Will Affect Care: None marital status: / Current Living Situation: Alone current occupational status: retired Feels Safe at Home: Yes Safety Concerns: Feels Safe At This Time Smoking Status: Never smoker Hx Alcohol Use: No Hx Substance Use: No Physical Exam Physical Exam: Physical Exam: Constitutional: appearance over nourished, healthyl Ears, Nose, Mouth and Throat: mucous membranes moist, no injection and skin normal, eyes normal Cardiovascular: normal S-1 and S-2 and regular rate and rhythm Respiratory: course breath sounds Musculoskeletal: no peripheral edema and good distal pulses Skin: no stigmata of neurocutaneous disease noted and normal and intact Eyes: extraocular muscles intact (EOMI) and pupils equal, round and reactive to light (PERRL) NEUROLOGIC EXAMINATION: Mental status: Alert and interactive Oriented to full date and location Oriented to person Speech fluent with no evidence of aphasia Cranial Nerves smile eye brow raise symmetric Reflexes: Deep tendon reflexes were symmetrical and graded 2/5. down going toes Sensory: intact to light cool touch Coordination: dysmetric to finger to nose left, finger on right hand are contracted Gait/Stance: Posture normal. lying in bed Motor: left pronator drift Strength: biceps triceps hand shipper/receiver right 5/5, left raise hand/arm against gravity, biceps triceps 4/5, hand shipper/receiver 4+/5 Results & Data Vital Signs (Past 12 Hours) Vital Signs Temp Pulse Pulse Resp BP BP Pulse Ox 08/22/19 11:57 36.8 C 54 L 18 137/76 96 03/02/20 07:34 36.4 C L 61 16 148/75 H 95 08/22/19 07:17 63 08/22/19 06:46 65 08/22/19 06:03 36.8 C 76 16 162/72 H 97 08/22/19 05:30 65 15 152/70 H 97 08/22/19 05:01 71 17 165/79 H 97 08/22/19 04:30 72 18 165/79 H 92 08/22/19 04:00 79 17 178/102 H 97 08/22/19 03:30 73 21 166/83 H 95 08/22/19 03:00 78 13 162/80 H 97 08/22/19 02:54 76 17 168/79 H 96 08/22/19 02:33 36.7 C 88 16 144/80 H 97 Laboratory Results Abnormal lab results 08/22/19 08/22/19 08/22/19 Range/Units 02:45 02:45 02:45 WBC 13.09 H (4.8-10.8) K/uL RBC 4.19 L (4.2-5.4) M/uL Neut # (Auto) 11.41 H (1.4-6.5) K/uL Lymph # (Auto) 0.94 L (1.2-3.4) K/uL [place] # (Auto) 0.67 H (0.11-0.59) K/uL PT 13.2 H (9.0-12.0) Seconds INR 1.3 H (0.9-1.1) Potassium 3.2 L (3.5-5.1) mmol/L Chloride 108 H (98-107) mmol/L Glucose 154 H (70-99) mg/dl Hemoglobin A1c (4.5-5.6) % Alkaline Phosphatase 249 H (45-117) U/L Troponin I 0.593 H* (0-0.045) ng/ml TSH 4.920 H (0.300-4.500) uIu/ml Free T4 1.65 H (0.8-1.6) ng/dl Urine Appearance (Clear) Urine Protein (Negative) Urine Ketones (Negative) Ur Leukocyte Esterase (Negative) Urine WBC (Auto) (0-5) /hpf Urine Bacteria (Auto) (Negative) 08/22/19 08/22/19 08/22/19 Range/Units 02:45 04:57 06:41 WBC (4.8-10.8) K/uL RBC (4.2-5.4) M/uL Neut # (Auto) (1.4-6.5) K/uL Lymph # (Auto) (1.2-3.4) K/uL [place] # (Auto) (0.11-0.59) K/uL PT (9.0-12.0) Seconds INR (0.9-1.1) Potassium (3.5-5.1) mmol/L Chloride (98-107) mmol/L Glucose (70-99) mg/dl Hemoglobin A1c 6.0 H (4.5-5.6) % Alkaline Phosphatase (45-117) U/L Troponin I 0.660 H* (0-0.045) ng/ml TSH (0.300-4.500) uIu/ml Free T4 (0.8-1.6) ng/dl Urine Appearance Cloudy A (Clear) Urine Protein 1+ H (Negative) Urine Ketones 1+ H (Negative) Ur Leukocyte Esterase 1+ H (Negative) Urine WBC (Auto) >30 H (0-5) /hpf Urine Bacteria (Auto) 4+ H (Negative) Diagnostic Findings MRA brain-Unremarkable MR angiogram of the brain. carotid doppler-here is no sonographic evidence of hemodynamically significant stenosis in the right or left carotid arterial system. Antegrade flow is shown in the vertebral arteries. MRI brain combo-Multiple small acute infarcts the largest involving the right occipital lobe and several punctate acute infarcts in the bilateral frontoparietal regions near the vertex. This may suggest an embolic etiology. Multiple old infarcts involving the left frontoparietal region to a greater degree than the right. Old lacunar infarct in the left thalamus. Chronic small vessel ischemic change. CXR-Cardiac silhouette is mildly enlarged. Calcified plaque of the thoracic aortic arch. The lungs are hyperinflated. No pneumothorax, pleural effusion, airspace consolidation or overt pulmonary edema. Degenerative changes of the shoulders and spine. cT head-. No acute intracranial hemorrhage, midline shift or acute territorial infarct. Age-related involutional changes with chronic microvascular ischemic. Encephalomalacia from remote infarct involves left frontal lobe. 5 mm hypodensity of the left thalamus is suggestive of age-indeterminate lacunar infarct.
[2019-08-22] MEDS: SERTRALINE HCL 50 MG TABLET PO SCH (21:08)
[2019-08-22] MEDS: PRAVASTATIN SOD 20 MG TAB PO SCH (21:08)
[2019-08-23] MEDS: cefTRIAXone SODIUM 1,000 MG in DEXTROSE 5% 50 ML IV SCH ×2 (05:38→08:18)
[2019-08-23] MEDS: LEVOTHYROXINE SODIUM 75 MCG TABLET PO SCH (05:39)
[2019-08-23 06:28] LABS: Basophils # (auto) 0.01 K/uL (0-0.2); Basophils % (auto) 0.1 %; Eosinophils # (auto) 0.09 K/uL (0-0.5); Eosinophils % (auto) 1.1 %; Hematocrit (blood only) 33.7 % (37-47); Immature Granulocytes # (auto) 0.02 K/uL (0.00-0.02); Immature Granulocytes % (auto) 0.2 %; Lymphocytes % (auto) 13.6 %; Mean Corpuscular Hemoglobin 29.5 pg (25-34); Mean Corpuscular Hgb Conc 32.6 g/dL (32-36); Mean Corpuscular Volume 90.3 fL (80-100); Mean Platelet Volume 10.6 fL (7.4-10.4); Monocytes # (auto) 0.51 K/uL (0.11-0.59); Monocytes % (auto) 6.3 %; Neutrophils # (auto) 6.34 K/uL (1.4-6.5); Neutrophils % (auto) 78.7 %; Platelet Count 152 K/uL (130-400); RDW Coefficient of Variation 13.6 % (11.5-14.5); RDW Standard Deviation 45.1 fL (36.4-46.3); Red Blood Count 3.73 M/uL (4.2-5.4); White Blood Count 8.07 K/uL (4.8-10.8)
[2019-08-23 07:10] LABS: BUN Creatinine Ratio 14.1 (10-20); Calcium 8.8 mg/dl (8.5-10.1); Creatinine Clr Calc Pharmacy 32.5 ml/min; Est GFR (African American) 59.3; Est GFR (Non-African American) 51.1; Potassium 3.9 mmol/L (3.5-5.1)
--- NOTE | 2019-08-23 07:35 | Hospitalist Progress Note ---
Date of Service August 23, 2019 Assessment & Plan (1) LUE weakness: Recurrent embolic CVA hx PAF not on anticoagulation secondary to fall risk and recurrent GI bleed from small bowel AVMs Hypertension, elevated secondary to above chronic diastolic heart failure (EF 55 to 60%, TTE 2016), patient euvolemic to dry hx CAD sp stent hyperlipidemia on statin Rx hypothyroidism, euthyroid as of today's TSH history PE/DVT status post IVC filter placement Hyperglycemia rule out DM Baby aspirin, continue home statin for secondary stroke prevention for now Neurology on case Permissive hypertension PT OT eval DVT prophylaxis per Lovenox subcu DNR Patient's daughter requesting updates for providers. Ms. Lety Ordoñez, . Labs checked ROS-No Headache, No Visual Changes, No Nausea, No Vomiting, No Fever, No Chills, No Neck Pain or Stiffness, No Chest Pain, No Palpitations, No SOB, No VALENZUELA, No Cough, No Sputum, No Wheezing, No Abdominal Pain, No Diarrhea, No Hematemesis, No Hemoptysis, No Unexpected Weight Loss, No Flank pain, No Melena, No Hematochezia, No Frequency, No Urgency, No Burning, No Hematuria, No Rashes, No Diaphoresis. Appetite is Normal Physical Exam Gen-AAO x 3, NAD, Afebrile Head-NCAT, EOMI, PERRLA, Anicteric Sclera, No Posterior Pharyngeal Erythema Neck-Supple, No JVD, No Thyromegaly, No Masses, No LAD, No Bruits Lungs-Clear to Auscultation Bilaterally, No Rales, No Rhonchi, No Wheezing, No Crepitus Chest-No S4, +S1, +S2, No S3, No Murmurs, No Rubs, No Gallops, No Ectopy Abdomen-Soft, Bowel Sounds Present, Non Tender, Non Distended, No Hepatomegaly, No Splenomegaly, No Palpable Masses, No Rebound, No Rigidity, No Guarding Musculoskeletal-Full Range of Motion Bilaterally, No CVAT Extremities-No Cyanosis, No Clubbing, No Edema Nuero-Cranial Nerves II-XII grossly intact, Motor WNL, DTRs WNL, Strength WNL, Non Focal Psych-Normal Mood Admission and Anticipated Discharge Date Admission Date: August 22, 2019 Results & Data ([facility]) Vital Signs (Past 12 Hours) Vital Signs Temp Pulse Pulse Resp BP Pulse Ox 08/23/19 07:23 36.6 C 59 L 20 149/68 H 95 08/23/19 07:12 57 L 08/23/19 03:05 36.7 C 59 L 18 165/74 H 94 08/22/19 23:54 36.7 C 61 18 156/74 H 95 08/22/19 23:52 56 L 08/22/19 19:30 36.8 C 58 L 19 147/74 H 96
[2019-08-23] MEDS: METOPROLOL SUCC 25MG EXT REL TAB PO SCH (08:16)
[2019-08-23] MEDS: CEROVITE ADV FORMULA TAB PO SCH (08:16)
[2019-08-23] MEDS: LORATADINE 10 MG TAB PO SCH (08:17)
[2019-08-23] MEDS: ASPIRIN 81 MG ECTAB PO SCH (08:17)
[2019-08-23] MEDS: DOCUSATE SODIUM 100 MG CAP PO SCH ×2 (08:17→20:03)
[2019-08-23] MEDS: AMIODARONE 200 MG TAB PO SCH (08:17)
[2019-08-23] MEDS: ENOXAPARIN INJ 30 MG/0.3 ML SYR SQ SCH (08:18)
[2019-08-23] MEDS: THEOPHYLLINE 300MG EXTENDED REL TAB PO SCH (08:18)
[2019-08-23] MEDS: FAMOTIDINE 20 MG TAB PO SCH (08:18)
[2019-08-23] MEDS: OLODATEROL HCL 2.5MCG/ACTUATION 60 PUFFS/INHALER INH SCH (08:19)
--- NOTE | 2019-08-23 14:15 | Cardiology Consultation ---
Date of Consultation August 23, 2019 Assessment & Plan (1) Acute CVA (cerebrovascular accident): MRI scan shows multiple scattered infarctions. This is likely an embolic phenomenon from her known paroxysmal atrial fibrillation. The patient has not taken long-term anticoagulation since recurrent GI bleeding occurred back in 2012. She was diagnosed with small bowel AVMs. Would continue to avoid long- term anticoagulation. Do not feel that aspirin and/or Plavix would offer much benefit. (2) Paroxysmal atrial fibrillation: Has been in sinus rhythm since hospital admission. Would continue amiodarone and metoprolol succinate. As above, would avoid long-term anticoagulation. (3) Elevated troponin: Minor elevation of little clinical significance. She exercises routinely without exertional angina pectoris. (4) CAD (coronary artery disease): She had a CHAO placed in LAD back in 2013. This stent was patent at the time of a catheterization in September 2012. Would continue medical management. (5) HTN (hypertension): Adequate control on current medical regimen. History of Present Illness Attending Physician: Landen Salgado DO History of Present Illness Mrs. Hutchinson is an 89-year-old female admitted yesterday with an embolic CVA. This consultation was ordered to assist in her cardiac management. Of note, the patient is well known to me from the outpatient setting. Patient claims that she was in her usual state of health until several days prior to presentation. She began to note significant left upper extremity weakness and dysfunction. The patient thought that this condition will simply go away. She presented to the emergency room yesterday and an MRI scan noted several acute infarctions in the right occiput and the bilateral parietal frontal regions. The patient carries history of paroxysmal atrial fibrillation. However, she does not take long-term anticoagulation as she developed recurrent GI bleeding from small bowel AVMs when on anticoagulation therapy back in 2012. The patient does not experience palpitations with her atrial fibrillation. She is tolerating rate and rhythm control without difficulty. The patient also carries a coronary history. She had a drug-eluting stent placed in LAD in 2003. A cardiac catheterization performed in September 2012 noted a patent stent in a 40% mid RCA stenosis. Unfortunately, she suffered an embolic stroke during that procedure and was transferred [facility] where she received lytic therapy. She does have a mild right hand deficit from that event. The above-mentioned cardiac catheterization was being performed as a preoperative evaluation. The patient had significant aortic insufficiency and evidence of mild left ventricular dysfunction. After she recovered from her embolic CVA, the patient refused consideration of any further cardiac procedures. The patient did have an echocardiogram performed in November 2012 which noted normal left ventricular systolic function, mild aortic insufficiency, and mild mitral regurgitation. The patient is very functional at home. She also rides a stationary bicycle 5- 10 mile several days each week for exercise. She does not experience exertional angina pectoris or limiting dyspnea. She further denies syncope, presyncope, PND, orthopnea, lower extremity edema, and claudication. Currently, patient is resting comfortably in bedside chair without complaints. Past medical and surgical history 1. Coronary artery disease-see above 2. LAD CHAO-2003, patent September 2012 3. Hypertension 4. Hypercholesterolemia 5. Mild aortic insufficiency-November 2012 6. Mild mitral regurgitation-November 2012 7. Transient left ventricular dysfunction-resolved November 2012 8. Paroxysmal atrial fibrillation-no anticoagulation 9. Recurrent GI bleeding-small bowel AVMs, 2012 10. Chronic diastolic CHF 11. Hypothyroidism 12. Chronic renal failure 13. History of PE/DVT-October 2015 14. Ronks filter-October 2015 15. Vitamin-D deficiency 16. Bilateral interocular lens implants 17. Hysterectomy 18. Bilateral TKR Social history , lives alone No tobacco or alcohol Family history Noncontributory Review of systems A 10 point review of systems was undertaken and negative except for that described above. Allergies Allergy/AdvReac Type Severity Reaction Status Date / Time warfarin Allergy Unknown Verified 08/22/19 10:33 Thiazides AdvReac Unknown HYPERCALCEM Verified 08/22/19 04:24 IA Home Medications Home Medications Medication Instructions Recorded Confirmed Type albuterol sulfate 90 mcg/actuation 2 puffs INH Q6H PRN #8 gm 02/17/19 08/22/19 Rx aerosol inhaler cholecalciferol (vitamin D3) 25 1,000 units PO DAILY #30 cap 02/17/19 08/22/19 Rx mcg (1,000 unit) capsule docusate sodium 100 mg capsule 100 mg PO BID #60 cap 02/17/19 08/22/19 Rx furosemide 20 mg tablet 20 mg PO DAILY #90 tab 02/17/19 08/22/19 Rx lisinopril 5 mg tablet 5 mg PO DAILY #90 tab 02/17/19 08/22/19 Rx nitroglycerin 0.4 mg sublingual 0.4 mg SL Q5M PRN #25 tab 02/17/19 08/22/19 Rx tablet potassium chloride 8 mEq 8 meq PO DAILY #90 cap 02/17/19 08/22/19 Rx capsule,extended release salmeterol 50 mcg/dose blister 1 puffs INH Q12H #60 ea 02/17/19 08/22/19 Rx powder for inhalation sertraline 25 mg PO QPM 06/28/19 08/22/19 History amiodarone 200 mg PO QAM 08/22/19 08/22/19 History famotidine 20 mg PO QAM 08/22/19 08/22/19 History levothyroxine 75 mcg PO QAM 08/22/19 08/22/19 History loratadine 5 mg PO DAILY 08/22/19 08/22/19 History metoprolol succinate 25 mg PO QAM 08/22/19 08/22/19 History vsuycfml-cvy-sveg-FA-lutein 1 tab PO QAM 08/22/19 08/22/19 History [Centrum Silver Women] pravastatin 20 mg PO QPM 08/22/19 08/22/19 History theophylline 300 mg PO DAILY 08/22/19 08/22/19 History vit C,L-Sb-oatfd-lutein-zeaxan 1 tab PO BID 08/22/19 08/22/19 History [PreserVision AREDS-2] Patient History Medical History Asthma, moderate persistent (Chronic) CAD (coronary artery disease) (Chronic) "s/p LAD stent placed in 2003" CKD (chronic kidney disease) stage 3, GFR 30-59 ml/min (Chronic) Diastolic heart failure (Chronic) "echo 07/06/14-LVEF 50% with grade 1 diastolic dysfunction and mild L ventricular hypertrophy, mod aortic regurg and mod mitral regurg" Dyslipidemia (Chronic) Femur fracture, left (Acute) History of CVA (cerebrovascular accident) (Chronic) "during procedure in 2012 " HTN (hypertension) (Chronic) Hypothyroidism (Chronic) Paroxysmal atrial fibrillation (Chronic) Vitamin D deficiency (Chronic) Surgical History H/O cataract removal with insertion of prosthetic lens (Resolved) "bilateral" History of hysterectomy (Resolved) Hx of total knee arthroplasty (Resolved) "bilateral 1996 and 1997" Status post revision of total replacement of left knee (Resolved) "2010" Stented coronary artery (Resolved) "LAD 2003" Social History Preferred Language: Belarusian Communication Ability: Effective Hospital Aides And Assistants Teacher Required: No Beliefs That Will Affect Care: None marital status: / Current Living Situation: Alone current occupational status: retired Feels Safe at Home: Yes Safety Concerns: Feels Safe At This Time Smoking Status: Never smoker Hx Alcohol Use: No Hx Substance Use: No Physical Exam Physical Exam: In general this is a well-developed well-nourished elderly white female seated in the bedside chair without complaints. HEENT exam is negative. Neck is supple with full carotid upstrokes. No carotid bruits. Jugular venous pressure is flat at 90 degrees. No thyromegaly. Cardiovascular exam reveals a regular rhythm with a normal S1-S2. Heart sounds are distant. No obvious murmurs. Lungs are clear without rales, rhonchi or wheezes. Abdomen is soft without bruits. Extremities reveal intact radial artery pulses bilaterally. There is no peripheral edema. Left upper extremity can only overcome gravity. Results & Data ([facility]) Vital Signs (Past 12 Hours) Vital Signs Temp Pulse Pulse Resp BP Pulse Ox 08/23/19 11:40 36.6 C 60 20 163/77 H 97 08/23/19 07:23 36.6 C 59 L 20 149/68 H 95 08/23/19 07:12 57 L 08/23/19 03:05 36.7 C 59 L 18 165/74 H 94 Laboratory Results CBC notes a hemoglobin 11.0, hematocrit 33.7, white count 8.07, platelet count [id number]. Electrolytes note a sodium of 139, potassium 3.9, chloride 110, bicarb 22, BUN 14, creatinine 0.98, glucose 125. Initial troponin is 0.593 with follow- up values of 0.66, 0.509, and 0.461. TSH is mildly elevated at 4.92. LDL cholesterol 67 with an HDL of 50. Diagnostic Findings EKG notes normal sinus rhythm with a left axis deviation and left ventricle hypertrophy with repolarization changes and QRS widening. Chest x-ray shows no acute disease. Brain MRI shows multiple acute infarcts involving the right occiput and the bilateral frontoparietal regions. MRI and carotid ultrasound are without significant disease. PG Care Time/CCT Total # of Minutes Spent Total Time Spent with Patient: Total time spent is greater than 50% in coordination of care (as documented) at patient's floor/unit and/or counseling patient: Coding Level of Care Code 58992 Initial Inpt Care Lvl 3 Diagnoses Acute CVA (cerebrovascular accident) I63.9 Paroxysmal atrial fibrillation I48.0 Elevated troponin R79.89 CAD (coronary artery disease) I25.10 HTN (hypertension) I10
--- NOTE | 2019-08-23 15:34 | Gastrointestinal Consultation ---
Date of Consultation August 23, 2019 Assessment & Plan (1) History of GI bleed: Ms. 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 . Now with an acute CVA. Management of anticoagulation including discussion of risks/benefits per cardiology and neurology. No clear GI contraindication to anticoagulation because hx of bleeding is fairly distant. If anticoagulated and GI bleeding occurs then we would consider endoscopy. However, at this time, with recent CVA and no gross GI bleeding, would defer endoscopy. GI will sign off. Please notify us if new/worsening GI issues. Present on Admission?: Yes History of Present Illness Reason for Consultation: Hx of GI bleed Requesting Physician: Dr. Salgado Attending Physician: Landen Salgado, DO History of Present Illness Ms. Hannah Hutchinson is an 89 yr old female pt of Dr. Sinha with a hx of CAD, (stenting in 2003), CVA, Mild aortic insufficiency and mitral regurg, A-fib (not anticoagulated), hypothyroidism, DVT in October 2015 now S/P Alon filter. She carries a hx of having had GI bleeding from duodenal ulcer, duodenal AVMs and ulcer in 2012. At that time, she had experienced CVA and was anticoagulated. She has not had further GI bleeding since that time. She specifically denies black BMs, abdominal pain, indigestion, nausea or vomiting. She presented to [facility] ED yesterday for left arm weakness of 2 days duration and imaging was suggestive of a CVA. GI is being consulted to provide opinion regarding risks/benefits of anticoagulation for acute CVA in light of hx of GI bleeding on prior anticoagulation. Review of records shows EGD x 2 in November 2012: Dr. Montalvo on 11/30/12: - Normal esophagus. - Z-line regular, 37 cm from the incisors. - Hiatus hernia. - Blood at 2nd part of the duodenum. 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 Treated with thermal therapy. - Coagulation for hemostasis was successful. - Level of service unusually complicated due to position of angioectatic sites. Dr. Ibarra on 12/09/12: Esophagus was normal. Stomach was normal. There were several small clean based ulcers in the second portion of the duodenum. These were clipped - five clips applied. There was mild intermittent oozing of BRB noted in the duodenum. The source was not clearly identified; I presume that this was an AVM. Two clips were placed blindly at this bleeding site; the bleeding appears to have stopped. Allergies Allergy/AdvReac Type Severity Reaction Status Date / Time warfarin Allergy Unknown Verified 08/22/19 10:33 Thiazides AdvReac Unknown HYPERCALCEM Verified 08/22/19 04:24 IA Home Medications Home Medications Medication Instructions Recorded Confirmed Type albuterol sulfate 90 mcg/actuation 2 puffs INH Q6H PRN #8 gm 02/17/19 08/22/19 Rx aerosol inhaler cholecalciferol (vitamin D3) 25 1,000 units PO DAILY #30 cap 02/17/19 08/22/19 Rx mcg (1,000 unit) capsule docusate sodium 100 mg capsule 100 mg PO BID #60 cap 02/17/19 08/22/19 Rx furosemide 20 mg tablet 20 mg PO DAILY #90 tab 02/17/19 08/22/19 Rx lisinopril 5 mg tablet 5 mg PO DAILY #90 tab 02/17/19 08/22/19 Rx nitroglycerin 0.4 mg sublingual 0.4 mg SL Q5M PRN #25 tab 02/17/19 08/22/19 Rx tablet potassium chloride 8 mEq 8 meq PO DAILY #90 cap 02/17/19 08/22/19 Rx capsule,extended release salmeterol 50 mcg/dose blister 1 puffs INH Q12H #60 ea 02/17/19 08/22/19 Rx powder for inhalation sertraline 25 mg PO QPM 06/28/19 08/22/19 History amiodarone 200 mg PO QAM 08/22/19 08/22/19 History famotidine 20 mg PO QAM 08/22/19 08/22/19 History levothyroxine 75 mcg PO QAM 08/22/19 08/22/19 History loratadine 5 mg PO DAILY 08/22/19 08/22/19 History metoprolol succinate 25 mg PO QAM 08/22/19 08/22/19 History ieayvzdh-pwl-xykd-FA-lutein 1 tab PO QAM 08/22/19 08/22/19 History [Centrum Silver Women] pravastatin 20 mg PO QPM 08/22/19 08/22/19 History theophylline 300 mg PO DAILY 08/22/19 08/22/19 History vit C,T-Xp-tnyuc-lutein-zeaxan 1 tab PO BID 08/22/19 08/22/19 History [PreserVision AREDS-2] Patient History Medical History Asthma, moderate persistent (Chronic) CAD (coronary artery disease) (Chronic) "s/p LAD stent placed in 2003" CKD (chronic kidney disease) stage 3, GFR 30-59 ml/min (Chronic) Diastolic heart failure (Chronic) "echo 07/06/14-LVEF 50% with grade 1 diastolic dysfunction and mild L ventricular hypertrophy, mod aortic regurg and mod mitral regurg" Dyslipidemia (Chronic) Femur fracture, left (Acute) History of CVA (cerebrovascular accident) (Chronic) "during procedure in 2012 " HTN (hypertension) (Chronic) Hypothyroidism (Chronic) Paroxysmal atrial fibrillation (Chronic) Vitamin D deficiency (Chronic) Surgical History H/O cataract removal with insertion of prosthetic lens (Resolved) "bilateral" History of hysterectomy (Resolved) Hx of total knee arthroplasty (Resolved) "bilateral 1996 and 1997" Status post revision of total replacement of left knee (Resolved) "2010" Stented coronary artery (Resolved) "LAD 2003" Social History Preferred Language: Nicaraguan Communication Ability: Effective County Extension Agent Required: No Beliefs That Will Affect Care: None marital status: / Current Living Situation: Alone current occupational status: retired Feels Safe at Home: Yes Safety Concerns: Feels Safe At This Time Smoking Status: Never smoker Hx Alcohol Use: No Hx Substance Use: No Review of Systems Review of Systems: ROS: Gen: Mild generalized weakness. No fevers or weight loss Eyes: No eye redness, or pain, no recent vision changes Resp: No SOB, no cough Cardio: Denies feeling any palpitations/irregular beats, no chest pain GI: No abdominal pain, no nausea/vomiting and no evidence of GI bleeding : Denies pain on urination Skin: No jaundice, itching or new rashes Neuro: left arm weakness Physical Exam Constitutional: WD/WN, vitals as above Eyes: PERRL, conjunctivae normal, anicteric sclerae ENMT: external ear and nose normal, oropharynx normal Neck: trachea midline, no thyromegaly Respiratory: normal respiratory effort, lungs clear to auscultation Cardiovascular: Rate/Rhythm: regular rate and regular rhythm S2/6 systolic murmur present Gastrointestinal (Abdomen): normal bowel sounds, soft, nontender, no hepatosplenomegaly Skin: no rashes, warm and dry Neurologic: + focal motor deficit (mild left hand grasp weakness compared to right) Speech / Cognition: normal speech Motor/Sensory: no tremor Psychiatric: A+Ox3, euthymic affect Lymphatic: no cervical or axillary lymphadenopathy Results & Data ([facility]) Vital Signs (Past 12 Hours) Vital Signs Temp Pulse Pulse Resp BP Pulse Ox 08/23/19 11:40 36.6 C 60 20 163/77 H 97 08/23/19 07:23 36.6 C 59 L 20 149/68 H 95 08/23/19 07:12 57 L Diagnostic Findings Non contrast CT head 08/21/18: 1. No acute intracranial hemorrhage, midline shift or acute territorial infarct. 2. Age-related involutional changes with chronic microvascular ischemic. 3. Encephalomalacia from remote infarct involves left frontal lobe. 4. 5 mm hypodensity of the left thalamus is suggestive of age-indeterminate lacunar infarct. MRI head 08/22/19: 1. Multiple small acute infarcts the largest involving the right occipital lobe and several punctate acute infarcts in the bilateral frontoparietal regions near the vertex. This may suggest an embolic etiology. 2. Multiple old infarcts involving the left frontoparietal region to a greater degree than the right. Old lacunar infarct in the left thalamus. 3. Chronic small vessel ischemic change.
[2019-08-23] MEDS: SERTRALINE HCL 50 MG TABLET PO SCH (20:01)
[2019-08-23] MEDS: PRAVASTATIN SOD 20 MG TAB PO SCH (20:03)
[2019-08-24] MEDS: LEVOTHYROXINE SODIUM 75 MCG TABLET PO SCH (05:51)
[2019-08-24 06:54] LABS: Hemoglobin 11.3 g/dL (12.0-16.0); Mean Corpuscular Hgb Conc 31.4 g/dL (32-36); Mean Corpuscular Volume 92.3 fL (80-100); Mean Platelet Volume 10.7 fL (7.4-10.4); Platelet Count 145 K/uL (130-400); RDW Coefficient of Variation 13.8 % (11.5-14.5); RDW Standard Deviation 46.5 fL (36.4-46.3); White Blood Count 8.21 K/uL (4.8-10.8)
[2019-08-24 07:29] LABS: BUN Creatinine Ratio 13.4 (10-20); Calcium 9.2 mg/dl (8.5-10.1); Creatinine Clr Calc Pharmacy 30.3 ml/min; Est GFR (African American) 54.5
[2019-08-24] MEDS: FAMOTIDINE 20 MG TAB PO SCH (08:22)
[2019-08-24] MEDS: METOPROLOL SUCC 25MG EXT REL TAB PO SCH (08:22)
[2019-08-24] MEDS: THEOPHYLLINE 300MG EXTENDED REL TAB PO SCH (08:23)
[2019-08-24] MEDS: ASPIRIN 81 MG ECTAB PO SCH (08:23)
[2019-08-24] MEDS: LORATADINE 10 MG TAB PO SCH (08:23)
[2019-08-24] MEDS: CEROVITE ADV FORMULA TAB PO SCH (08:23)
[2019-08-24] MEDS: AMIODARONE 200 MG TAB PO SCH (08:24)
[2019-08-24] MEDS: DOCUSATE SODIUM 100 MG CAP PO SCH ×2 (08:24→20:14)
[2019-08-24] MEDS: cefTRIAXone SODIUM 1,000 MG in DEXTROSE 5% 50 ML IV SCH (08:24)
[2019-08-24] MEDS: OLODATEROL HCL 2.5MCG/ACTUATION 60 PUFFS/INHALER INH SCH (08:24)
[2019-08-24] MEDS: ENOXAPARIN INJ 40 MG/0.4 ML SYR SQ SCH (08:25)
--- NOTE | 2019-08-24 12:21 | Hospitalist Progress Note ---
Date of Service August 24, 2019 Assessment & Plan (1) Acute CVA (cerebrovascular accident): Likely embolic source. ASA 81mg ongoing. No other antiplatelets or anticoagulation recommended at this time with h/o AVMs and bleeding in the past. No evidence of arrhythmia on telemetry review overnight. Persistent new LUE weakness. Cont working with PT and OT on this. Cont ASA 81mg and statin. Noted no evidence of active or recent GI bleeding. (2) History of GI bleed: No recent bleeding. GI deferred any inpatient endoscopic workup with recent CVA. Follow-up as outpatient. (3) Acute UTI (urinary tract infection): Ceftriaxone change to macrobid x 5 days. (4) Paroxysmal atrial fibrillation: No AC recommended as above. Maintains sinus rhythm on monitor. Rate control with metroprolol, rhythm control with amiodarone. (5) CKD (chronic kidney disease) stage 3, GFR 30-59 ml/min: chronic, stable and at her baseline. (6) CAD (coronary artery disease): stable, cont medical management with ASA, statin, BB, ACEI (scheduled to restart tomorrow after period of permissive HTN) (7) DVT prophylaxis: Lovenox DNR/DNI Dispo-ok to DC to SNF once medical authorization has gone through. Celena Rikc DO [facility] Hospitalist Admission and Anticipated Discharge Date Admission Date: August 22, 2019 Anticipated date of discharge: 08/24/19 Subjective recent embolic CVA remains on baby ASA denies any recent h/o bleeding mentating clearly reports persistent inability to use LUE especially hand. Reports trouble feeding herself. 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 Review of Systems Review of Systems: All systems reviewed & are unremarkable except as noted in Subjective Physical Exam Physical Exam: CONSTITUTIONAL: WNWD, vitals as above, generally well- appearing EYES: EOMI bilaterally, PERRL, normal conjunctivae, no scleral icterus ENT: external ear and nose normal, oropharynx clear, MMM RESPIRATORY: clear to auscultation bilaterally, no crackles, rales or wheezes, normal respiratory effort CARDIOVASCULAR: regular rate and rhythm, S1 and 2 heard without murmurs, gallops or rubs, no JVD, no peripheral edema, no carotid bruits GASTROINTESTINAL: normal bowel sounds, soft, nontender, nondistended MUSCULOSKELETAL: strength 5/5 throughout, head is normocephalic and atraumatic SKIN: warm and dry NEUROLOGIC: patellar DTRs could not elicit. No facial palsy, no dysarthria. CN 2-12 grossly intact, no sensory deficit, normal cognition, normal speech, no tremor PSYCHIATRIC: alert cooperative and oriented to person, place and time. Results & Data ([facility]) Vital Signs (Past 12 Hours) Vital Signs Temp Pulse Pulse Resp BP BP Pulse Ox 08/24/19 07:46 36.8 C 74 20 118/76 96 08/24/19 07:45 36.4 C L 57 L 18 130/59 L 98 08/24/19 07:24 52 L 08/24/19 04:00 36.7 C 59 L 18 139/72 96 Laboratory Results Short CBC 08/24/19 Range/Units 06:32 WBC 8.21 (4.8-10.8) K/uL Hgb 11.3 L (12.0-16.0) g/dL Hct 36.0 L (37-47) % Plt Count 145 (130-400) K/uL BMP 08/24/19 06:32 Sodium 140 Potassium 4.0 Chloride 109 H Carbon Dioxide 24 BUN 14 Creatinine 1.05 Glucose 108 H Calcium 9.2 Medications Administered Current Inpatient Medications Acetaminophen (Tylenol) 650 mg PO Q4H PRN PRN Reason: Pain or Fever Stop: 09/21/19 06:14 Amiodarone HCl (Cordarone) 200 mg PO [facility] Stop: 09/21/19 08:59 Last Admin: 08/24/19 08:24 Dose: 200 mg Documented by: Aspirin (Ecotrin Ectab) [facility] Stop: 09/22/19 08:59 Last Admin: 08/24/19 08:23 Dose: 81 mg Documented by: Docusate Sodium (Colace) 100 mg PO BID [facility] Stop: 09/21/19 08:59 Last Admin: 08/24/19 08:24 Dose: Not Given Documented by: Enoxaparin Sodium (Lovenox) 40 mg SQ [facility] Stop: 09/23/19 08:59 Last Admin: 08/24/19 08:25 Dose: 40 mg Documented by: Famotidine (Pepcid) 20 mg PO QA [facility] Stop: 09/21/19 08:59 Last Admin: 08/24/19 08:22 Dose: 20 mg Documented by: Promethazine HCl 12.5 mg/ (Sodium Chloride) 50.5 mls @ 202 mls/hr IV Q6H PRN PRN Reason: Nausea And Vomiting Stop: 09/21/19 06:14 Ceftriaxone Sodium 1,000 mg/ (Dextrose) 60 mls @ 100 mls/hr IV DAILY [facility] Stop: 08/28/19 04:59 Last Infusion: 08/24/19 09:03 Dose: Infused Documented by: Levothyroxine Sodium (Synthroid) [facility] Stop: 09/21/19 06:29 Last Admin: 08/24/19 05:51 Dose: 75 mcg Documented by: Loratadine (Claritin) 5 mg PO DAILY [facility] Stop: 09/21/19 08:59 Last Admin: 08/24/19 08:23 Dose: 5 mg Documented by: Metoprolol Succinate (Toprol Xl) 25 mg PO QAM [facility] Stop: 09/22/19 08:59 Last Admin: 08/24/19 08:22 Dose: 25 mg Documented by: Miscellaneous Information (Pharmacist Discharge Med Rec Consult) 1 ea N/A UD PRN PRN Reason: Consult Stop: 09/21/19 06:14 Multivitamins/Minerals (Multivitamin W/ Minerals Tab) 1 tab PO QAM [facility] Stop: 09/21/19 08:59 Last Admin: 08/24/19 08:23 Dose: 1 tab Documented by: Nitroglycerin (Nitrostat) 0.4 mg SL UD PRN PRN Reason: Chest Pain Stop: 09/21/19 06:14 Olodaterol (Striverdi Respimat) 2 puffs INH DAILY [facility] Stop: 09/21/19 08:59 Last Admin: 08/24/19 08:24 Dose: 2 puffs Documented by: Pravastatin Sodium (Pravachol) 20 mg PO QPM [facility] Stop: 09/21/19 20:59 Last Admin: 08/23/19 20:03 Dose: 20 mg Documented by: Sertraline HCl (Zoloft) 25 mg PO QPM [facility] Stop: 09/21/19 20:59 Last Admin: 08/23/19 20:01 Dose: 25 mg Documented by: Theophylline (Kwasi-Dur Extended Rel) 300 mg PO DAILY [facility] Stop: 09/21/19 08:59 Last Admin: 08/24/19 08:23 Dose: 300 mg Documented by: Tramadol HCl (Ultram) 25 mg PO Q4H PRN PRN Reason: Pain Stop: 09/21/19 06:14
[2019-08-24] MEDS: cephALEXin 500 MG CAP PO SCH (20:15)
[2019-08-24] MEDS: PRAVASTATIN SOD 20 MG TAB PO SCH (20:16)
[2019-08-24] MEDS: SERTRALINE HCL 50 MG TABLET PO SCH (20:16)
[2019-08-24] MEDS ORDERED: CIPROFLOXACIN 500 MG TAB PO SCH (21:00)
[2019-08-24] MEDS ORDERED: NITROFURANTOIN MONOHYDRATE 100 MG CAP PO SCH (21:00)
[2019-08-25] MEDS: LEVOTHYROXINE SODIUM 75 MCG TABLET PO SCH (05:39)
[2019-08-25] MEDS ORDERED: lisinopriL 5 MG TAB PO SCH (09:00)
[2019-08-25] MEDS: DOCUSATE SODIUM 100 MG CAP PO SCH (09:08)
[2019-08-25] MEDS: AMIODARONE 200 MG TAB PO SCH (09:08)
[2019-08-25] MEDS: LORATADINE 10 MG TAB PO SCH (09:08)
[2019-08-25] MEDS: METOPROLOL SUCC 25MG EXT REL TAB PO SCH (09:09)
[2019-08-25] MEDS: cephALEXin 500 MG CAP PO SCH (09:09)
[2019-08-25] MEDS: ENOXAPARIN INJ 40 MG/0.4 ML SYR SQ SCH (09:09)
[2019-08-25] MEDS: CEROVITE ADV FORMULA TAB PO SCH (09:09)
[2019-08-25] MEDS: FAMOTIDINE 20 MG TAB PO SCH (09:09)
[2019-08-25] MEDS: ASPIRIN 81 MG ECTAB PO SCH (09:09)
[2019-08-25] MEDS: OLODATEROL HCL 2.5MCG/ACTUATION 60 PUFFS/INHALER INH SCH (09:09)
[2019-08-25] MEDS: THEOPHYLLINE 300MG EXTENDED REL TAB PO SCH (09:09)
--- NOTE | 2019-08-25 13:15 | Discharge Summary ---
Date of Service August 25, 2019 Admission HPI Per Admitting Provider Patient has another [facility] EMR record. Lexie Hutchinson [facility] Rec: [id number] Acct ID: [id number] History obtained from patient, family, and records. Medical history significant for chronic diastolic heart failure (EF 55 to 60%, TTE 2016) CAD sp stent, A. 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 Recent confinement October 2015 for acute PE/DVT. Patient discharged on Eliquis. Recent ER visit 2 months ago for head trauma following a fall resulting in a scalp laceration. Patient not feeling well the last couple of days. Yesterday morning, she noted weakness in the left arm and hand. Achy generalized headache, nausea symptoms. Patient did not want to come to the hospital initially. Patient denies chest pain, S OB. Denies abdominal pain, dysuria symptoms Patient given aspirin by EMS prior to transfer to ER. 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 Admission Exam Per Admitting Provider GENERAL: Comfortable, pleasant, slightly hard of hearing, no respiratory distress SKIN: Normal color, warm HEENT: Bespectacled, pink palpebral conjunctivae, no ptosis, dry buccal mucosa, edentulous NECK : Supple, no tenderness CHEST : CTA, no tenderness HEART : RRR, systolic murmur ABDOMEN: Some distention, nontender EXTREMITIES : No LE swelling/tenderness, no other conspicuous deformities noted NEUROLOGIC : Coherent, no facial asymmetry, slightly hard of hearing, pronator drift left, Principal Diagnosis Acute CVA UTI Paroxysmal atrial fibrillation Discharge Data Allergies Allergy/AdvReac Type Severity Reaction Status Date / Time warfarin Allergy Unknown Verified 08/22/19 10:33 Thiazides AdvReac Unknown HYPERCALCEM Verified 08/22/19 04:24 IA Consultations 08/22/19 03:41 ED Decision to Admit Stat 08/22/19 06:15 Consult Case Management - Discharge Planning Routine Consult Case Management - Discharge Planning Routine Consult Neurology Routine 08/22/19 17:49 Consult Cardiology Routine 08/22/19 17:52 Consult Gastroenterology Routine Ordered Studies 08/22/19 02:50 CT head/brain wo con Urgent 08/22/19 06:15 MR angio head wo con Routine MR brain wo con Routine US carotid doppler BI Routine Hospital Course (1) Acute CVA (cerebrovascular accident): (2) History of GI bleed: No recent bleeding. GI deferred any inpatient endoscopic workup with recent CVA. Follow-up as outpatient. (3) Acute UTI (urinary tract infection): (4) Paroxysmal atrial fibrillation: An 89-year-old female presented to the ER with left upper extremity weakness. 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 She was admitted to the Hospitalist service and continued on baby aspirin and her home statin. Work-up included a head CT without contrast revealing no acute intracranial hemorrhage midline shift or acute territorial infarct, age-related chronic microvascular changes, encephalomalacia from a remote infarct involving left frontal lobe, and a 5 mm hypodensity of the left thalamus suggestive of an age-indeterminate lacunar infarct. A brain MRI revealed multiple small acute infarcts the largest involving the right occipital lobe and several punctate acute infarcts in the bilateral frontoparietal regions near the vertex. This pattern was suggestive of an embolic etiology. An old lacunar infarct was seen in the left thalamus. A carotid Doppler revealed no hemodynamically significant stenosis of the right or left carotid arterial system with antegrade flow shown in the vertebral arteries. Head MRA was performed that was unremarkable. A chest x-ray revealed no acute process. Urinalysis was checked and revealed E. coli which was treated with antibiotics. Baby aspirin was continued and no other antiplatelets or anticoagulation was recommended after consultation with neurology and cardiology secondary to history of AVMs and bleeding in the past. She remained in sinus r hythm throughout her hospitalization and there was no evidence of active or recent GI bleeding. She had persistent new upper left upper extremity weakness and continued working with therapy on this while hospitalized. Her rate was controlled with metoprolol and she remained on amiodarone per home regimen. At time of discharge she was hemodynamically stable and afebrile and tolerating p.o. she was mentating and ambulating at baseline and was sent to [facility] for continued rehab efforts. Close primary care follow-up was recommended to continue this discussion regarding her anticoagulation and risk of bleeding as she remains high risk for stroke moving forward. This was explained to her and she verbalized understanding with intent to comply. Total Time Total Time Spent Total Time Spent (In Minutes): 60 Total Time Includes: Examination of the Patient, Discharge Planning, Medication Reconciliation and Communication With Other Providers Discharge Plan Discharge Items Patient Disposition: Transfer Detention Fac Reason For Visit: CVA Discharge Diagnosis: Acute CVA UTI Paroxysmal atrial fibrillation Activity: Resume your previous activity Non-emergency contact: Primary Care Provider Call non-emergency contact if: you have any medication questions, your symptoms worsen, your pain is not controlled, your pain is worsening, your pain is unusual for you, your pain is concerning for you and you have a fever Follow-up/Referrals: Nell Sinha, [Primary Care Provider] - Diet: Regular Addtl Attending Provider Instructions: Please take all medications as instructed on discharge list below. You are being given a short course of antibiotics to complete for treatment of your urinary tract infection that was found. You are not being given anticoagulation for stroke risk reduction in atrial fibrillation despite the fact that you are high risk for additional strokes moving forward. This is related to your higher risk of bleeding and known history of gastrointestinal bleeding in the past. Please touch base with your primary care physician regarding this and continue the conversation with your typical health care team. It is recommended that you have a one week follow-up with your PCP after discharge from the receiving facility. This would be to discuss your stroke risk with atrial fibrillation as above and to ensure you are doing well after discharge home. It was a pleasure taking care of you! Please call if you have any questions or problems. You can reach a [facility] hospitalist on duty at [facility] 24 hours a day by calling [phone]. Take care of yourself. Celena Rick DO [facility] Hospitalist Pending Studies at Discharge: No Stand-Alone Forms: My [facility] Skilled Items Patient informed of condition?: Yes DNR: Yes Discharge Level of Care: Skilled Communicable Disease: No Discharge Prognosis: Stable Lines: None Urinary Catheter: No Medications and DC Order Prescriptions: New atorvastatin [Lipitor] 40 mg tablet 40 mg PO HS Qty: 30 RF: 1 aspirin 81 mg Tablet,Delayed Release (Dr/Ec) 81 mg PO QAM Qty: 90 RF: 1 Continued nitroglycerin 0.4 mg tablet, sublingual 0.4 mg SL Q5M PRN (Reason: chest pain) Qty: 25 RF: 0 albuterol sulfate [ProAir HFA] 90 mcg/actuation HFA aerosol inhaler 2 puffs INH Q6H PRN (Reason: shortness of breath or wheezing) Qty: 8 RF: 0 Serevent Diskus 50 mcg/dose blister with device 1 puffs INH Q12H Qty: 60 RF: 3 furosemide 20 mg tablet 20 mg PO DAILY Qty: 90 RF: 3 potassium chloride 8 mEq capsule, extended release 8 meq PO DAILY Qty: 90 RF: 3 docusate sodium [Colace] 100 mg capsule 100 mg PO BID Qty: 60 RF: 0 cholecalciferol (vitamin D3) 1,000 unit capsule 1,000 units PO DAILY Qty: 30 RF: 0 lisinopril 5 mg tablet 5 mg PO DAILY Qty: 90 RF: 3 sertraline 25 mg Tablet 25 mg PO QPM RF: 0 amiodarone 200 mg tablet 200 mg PO QAM RF: 0 levothyroxine 75 mcg capsule 75 mcg PO QAM RF: 0 loratadine 5 mg tablet,disintegrating 5 mg PO DAILY RF: 0 PreserVision AREDS-2 [id number] di-mdcc-ti-mg Capsule 1 tab PO BID RF: 0 Centrum Silver Women 8 mg iron-400 mcg-300 mcg tablet 1 tab PO QAM RF: 0 famotidine 20 mg Tablet 20 mg PO QAM RF: 0 metoprolol succinate 25 mg Tablet Extended Release 24 Hr 25 mg PO QAM RF: 0 theophylline 300 mg Capsule,Extended Release 24hr 300 mg PO DAILY RF: 0 Discontinued pravastatin 20 mg tablet 20 mg PO QPM RF: 0 Discharge Orders: Discharge Order (Routine); Ordered 08/25/19 Ordered By: Celena Reyez/Other Patient Handouts: A1C Admission Data Admit Date/Time: 08/22/19 04:56 Attending Provider: Celena Rick Admit Provider: Jose Garrison Primary Care Provider: Sinha,Nell M. Other Providers: Jose Garrison ; April Reyes ; Eliseo Rodriguez ; April Cameron ; Fidel Emerson ; Kiara Moraes ; Simona Kevin ; Israel Sawyer ; Danette Cruz ; Randy Long ; Verenice Cabral ; Santiago Ibarra ; Debbie Alvarado ; Franko Montalvo ; Akash Peralta ; Patricia Murphy ; Megan Aranda ; Ml Irwin ; Melony Perales ; Eleni Barbosa ; Franko Ansari ; Sacha Osei Other Interventions: Discharge Summary Assessment (RN) Last Done: 08/25/19 13:30 DC Date/Time DO NOT enter until pt leaves facility: 08/25/19 13:54
== END 2019-08-25 13:54 | DRG 65 ==
LOC: ED 02:27 → SUATTDRO 04:56 → 2N 04:56